=== PATIENT | male | born 1940 | race Asian ===

== ENCOUNTER 2018-04-07 11:51 | Outpatient (CLI) | payer OTHER, MEDICARE ==
[~2018-04-07 11:51] MED LIST: ALLO100T PO; ASPI-1154 PO; ATEN-166 PO; EZET10TA PO; FELO10TA PO; FENO135C PO; FOSI10TA PO; GLU500 PO; RIVA10TA PO; ROSU5TAB PO; SODI650T PO
[2018-04-07 12:33] LABS: ANION GAP 10 (5-15); CALCIUM 9.2 mg/dL (8.4-11.0); CHLORIDE 105 mmol/L (98-107); CREATININE 1.52 mg/dL (0.55-1.30); GLUCOSE 118 mg/dL (70-99); POTASSIUM 4.3 mmol/L (3.5-5.1); SODIUM SERUM 139 mmol/L (136-145); UREA NITROGEN, BLOOD 27 mg/dL (8-21)
== END 2018-04-07 19:57 | disposition home or self-care (01) ==
LOC: SLB 11:51
DX: I10 Essential (primary) hypertension (principal)
CPT/HCPCS: 36415; 80048